=== PATIENT | female | born 1945 | race Caucasian/White ===

== ENCOUNTER 2016-08-22 10:14 | Day surgery (SDC) | payer MEDICARE, OTHER ==
[2016-08-22] VITALS (8 sets, daily range): BP systolic 109–117; BP diastolic 60–89; PULSE 56–74; RESP 13–16; O2SAT 95–100
[~2016-08-22] VITALS: Ht 165.1 cm; Wt 78.0 kg
[~2016-08-22 10:14] MED LIST: ASPI-973 PO; CHOL100045 PO; CeFAZolin Inj 2 GM in IV Premix 1 EACH IV ONE; CeFAZolin Inj 2 GM in IV Premix 1 EACH IV SCH; DILT120T3 PO; LACT1CAP67 PO; Lactated Ringer's 1,000 ML IV SCH; MAGN400T23 PO; METO25TA99 PO; MULT-1018 PO; NAPR220C11 PO; OMEP10CA4 PO; SULF1TAB7 PO
[2016-08-22] MEDS ORDERED: Propofol 10,000 mCg/mL 20 mL Inj ONE (10:15)
[2016-08-22] MEDS ORDERED: Phenylephrine/NS-PF 100 mCg/mL 5 mL Syringe IVPUSH ONE (10:15)
[2016-08-22] MEDS ORDERED: Ondansetron 2 mg/mL 2 mL Inj ONE (10:15)
[2016-08-22] MEDS ORDERED: EPHEDrine/NS 5 mg/mL 5 mL Syringe ONE (10:15)
[2016-08-22] MEDS ORDERED: Lidocaine PF 1% 30 mL Inj ONE (10:15)
[2016-08-22] MEDS ORDERED: fentaNYL-PF 50 mCg/mL 2 mL Inj ONE (10:15)
[2016-08-22] MEDS ORDERED: CeFAZolin 2 Gm/50 mL D5W Duplex Bag IV ONE (11:19)
[2016-08-22] MEDS ORDERED: Lactated Ringer's 500 ML IV PRN (11:47)
[2016-08-22] MEDS ORDERED: Lactated Ringer's 1,000 ML IV SCH (11:47)
--- NOTE | 2016-08-22 11:47 | PCM.HPANE ---
Patient Data Date of Service: Aug 22, 2016 Surgeon Admitting Provider: Attending Provider:Sonya Massey MD Primary Care Physician:Eden Che PA-C Other Provider:Rossi Beatty Anesthesia Reason for Visit Hematuria, Bladder Tumor Ht/WT & BMI Height (Feet): 5 Height (Inches): 5 Weight (Kilograms): 78 Body Mass Index 28.00 Allergies Coded Allergies: No Known Allergies (Unverified , 08/21/16) Past Anesthesia History Anesthesia History: Denies:: Anesthesia Reactions, Malignant Hyperthermia Diabetes History Hx Diabetes?: No MRSA MRSA: No Medications Blood Thinner: Aspirin Hypertension Medication: Yes (DILTIAZEM) Home Meds Incl Beta Jo Ann: Yes Date Beta Jo Ann Taken: Aug 21, 2016 Time Beta Jo Ann Taken: 1999 Reported Medications Sulfamethoxazole/Trimeth 800-160 mg (Bactrim DS)1 Each Tablet1 Tablet PO BID Ref 0 08/21/16 Cholecalciferol (Vitamin D3) (Vitamin D)1,000 Unit Capsule5,000 Unit PO DAILY # 1 BOTTLE Ref 0 08/21/16 Omeprazole 10 Mg Capsule.dr20 Mg PO DAILY Ref 0 08/21/16 Multivitamin (Multi Vitamin Daily)1 Each Tablet1 Each PO DAILY 30 Days Ref 0 08/21/16 Metoprolol Succinate ER 25 Mg Tab.er.24h25 Mg PO DAILY Ref 0 08/21/16 Magnesium Oxide (Mag-Oxide)400 Mg [id number] Mg PO DAILY 08/21/16 Lactobacillus Combination No.4 (Probiotic)1 Each Capsule1 Each PO DAILY 08/21/16 Diltiazem 120 Mg Hulzno275 Mg PO DAILY 08/21/16 Aspirin 81 Mg Nviivq66 Mg PO DAILY Ref 0 08/21/16 Naproxen Sodium (Aleve)220 Mg Cfcxerp435 Mg PO BID PRN PRN 08/21/16 History History of ENT Problems?: No HEENT History: Denies:: Abnormal Airway Difficult Intubation Denture Type: None Teeth Condition: Within Normal Limits Hx of Heart Problems?: Yes Cardiovascular History: Positive for:: Hypertension Irregular Heartbeat Denies:: Heart Murmur Hx of Respiratory Problem?: No Respiratory History: Denies:: Asthma Pulmonary Embolism Use of C-PAP Machine Hx Neurologic Problems?: Yes Hx of GI Problems?: Yes Gastrointestinal History: Positive for:: Gastroesphageal Reflux (with certain foods) Hx of Problems?: Yes Genitourinary History: Positive for:: Urinary Tract Infection (currently on bactrim ds) Other Pertinent History: HEMATURIA/BLADDER TUMOR=CURRENT PROBLEM C/OF NOCTURIA & INCOMPOLETE EMPTYING Female Hx: Denies:: Currently Skin History: Denies:: History Skin Disorders? Pressure Ulcers Hx Musculoskeletal Problems?: No Hx of Psycho/Social Problems?: No Hx Surgeries?: Yes (C/S,BTL,GRADY) Hx Any Other Health Problems?: Yes Other History: Denies:: Cancer Endocrine Disease Hospitalization Thyroid Disease Hx Diabetes: No Hx Alcohol Use: YesHx Substance Use: No Smoking Status: Never Smoker Have You Smoked inLast 12 mo: No Stop/Bang S-Snoring: Do You Snore Loudly: No T-Tired: feel tired, fatigued: Yes O-Obsered: Observed not breath: No P-Blood Pressure: treated: Yes B- Body Mass Index > 35 kg/m2: No A- Age over 50: Yes N- Neck Large Circumference: No G- Gender Male: No COURTNEY Total Score: 3 COURTNEY Risk Assessment: High Risk, =/>3 Yes Risk Assessment Category Category 1A: Patient has history of documented sleep apnea, and HAS NOT received any narcotic, sedative or anesthesia administration during this stay. Category 1B: Patient has history of documented sleep apnea, and HAS received any narcotic , sedative or anesthesia administration during this stay Category 2: Patient has SUSPECTED Obstructive Sleep Apnea, and HAS received any narcotic , sedative or anesthesia administration during this stay. Category 3: Patient has SUSPECTED Obstructive Sleep Apnea and HAS NOT received narcotic, sedative or anesthesia administration during this stay. Category 4: Outpatient in Procedural Areas with known sleep apnea or who screen positive for High Risk via the STOP/BANG questionnaire. Exam Exam Vital Signs Vital Signs Date Time Temp Pulse Resp B/P Pulse Ox O2 Delivery O2 Flow Rate FiO2 08/22/16 11:20 36.4 66 16 117/84 95 Room Air General Appearance: Alert, Oriented X3, Cooperative HEENT/AIRWAY: MP 2, Neck Movement (Full), Mouth Opening (Wide) Lungs: Clear to Auscultation Heart: Regular Rate/Rhythm, Normal S1, Normal S2 Plan Impression Patient chart reviewed, patient interviewed and anesthestic plan with risks, benefits, and alternatives discussed, and informed consent obtained. NPO per Anesth. Guidelines: Yes ASA Physical Status: ASA2 Mod Systemic Disease Anesthetic Plan: GA Bene/Risks/Altern/Consents: Yes HP Complete Prior to Induction: Yes Angelito Alba MD Aug 22, 2016 11:47
[2016-08-22] MEDS ORDERED: fentaNYL-PF 50 mCg/mL 2 mL Inj IVPUSH PRN (11:50)
[2016-08-22] MEDS ORDERED: Phenylephrine 10,000 mCg/mL Inj IVPUSH PRN (11:50)
[2016-08-22] MEDS ORDERED: MetoCLOpramide 5 mg/mL 2 mL Inj IVPUSH PRN (11:50)
[2016-08-22] MEDS ORDERED: HYDROmorphone 1 mg/mL Inj IVPUSH PRN (11:50)
[2016-08-22] MEDS ORDERED: hydrALAZINE 20 mg/mL Inj IVPUSH PRN (11:50)
[2016-08-22] MEDS ORDERED: Labetalol 5 mg/mL 4 mL Inj IV PRN (11:50)
[2016-08-22] MEDS ORDERED: Ondansetron 2 mg/mL 2 mL Inj IVPUSH PRN (11:50)
[2016-08-22] MEDS ORDERED: Atropine 0.4 mg/mL Inj IVPUSH PRN (11:50)
[2016-08-22] MEDS ORDERED: EPHEDrine Sulfate 50 mg/mL Inj IVPUSH PRN (11:50)
[2016-08-22] MEDS ORDERED: Dexamethasone 4 mg/mL Inj IVPUSH PRN (11:50)
[2016-08-22] MEDS ORDERED: Lactated Ringer's 1,000 ML IV ONE (12:02)
[2016-08-22] MEDS ORDERED: HYDROcodone-APAP 5-325 mg Tablet PO PRN (12:50)
--- NOTE | 2016-08-22 13:01 | PCM.ANEP1 ---
Post Anesthesia PACU Phase 1 Assessment Vital Signs Vital Signs Date Time Temp Pulse Resp B/P Pulse Ox O2 Delivery O2 Flow Rate FiO2 08/22/16 13:00 68 15 110/65 97 Room Air 08/22/16 12:55 36.6 72 15 109/60 97 Room Air 08/22/16 12:50 72 13 110/70 97 Room Air 08/22/16 12:45 36.5 74 13 109/68 98 Room Air 08/22/16 11:20 36.4 66 16 117/84 95 Room Air Anesthetic Administered: GA Level of Alertness: Awake, talking HADLEY's with Equal Strength: Yes Pain: No Nausea or Vomiting: No CV Function & Hydration Stable: Yes Airway Device: Oxygen Delivery: Room Air Lungs: Normal Air Movement PACU Phase 2 Assessment Complications: No Follow up Care: No Patient Instructions Provided: N/A Angelito Alba MD Aug 22, 2016 13:01
--- NOTE | 2016-08-22 13:22 | OP ---
[address] [address] OPERATIVE REPORT PATIENT: DIANNA ROGER : 1945 MR#: [id number] ADMIT: 08/22/2016 JOB ID: [id number] DATE OF SURGERY: 08/22/2016 PREOPERATIVE DIAGNOSIS(ES): Bladder tumor. POSTOPERATIVE DIAGNOSIS(ES): Bladder tumor. PROCEDURE PERFORMED: Cystoscopy and transurethral resection of bladder tumor (2 cm). SURGEON: Sonya Massey M.D. FINISHER CARD TENDER: None. 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 ANESTHESIA: General. ESTIMATED BLOOD LOSS: Less than 2 mL. DRAINS: None. SPECIMENS: 1. Bladder tumor. 2. Deep base of bladder tumor. COMPLICATIONS: None. CONDITION: Stable. INDICATION FOR PROCEDURE: The patient is a 70-year-old woman with a bladder tumor. She now presents for transurethral resection of bladder tumor. DESCRIPTION OF PROCEDURE: After informed consent was obtained, the patient was taken to the operating room. A time-out was performed identifying correct patient, surgical site, and procedure. General anesthesia was smoothly induced. She was given intravenous antibiotics just prior to the start of the procedure. She was placed in the lithotomy position and all pressure points were identified and appropriately padded. Her genitals were then prepped and draped in a sterile fashion. A 26-Romansh resectoscope was applied to the patient's urethra and advanced into the bladder under direct vision. The bladder was drained. The bladder was systematically inspected. There was the one bladder tumor as aforementioned. Both ureteral orifices were seen in orthotopic position and normal size and shape. Resection then commenced in a piecemeal fashion removing the tumor. This was passed off the table as bladder tumor. The deep base was sampled with cold cup biopsy forceps. The base and a 1-1.5 cm margin of normal mucosa was cauterized with the loop. The bladder was drained. The bladder was reinspected. There was no bleeding. The instruments were then removed from the patient's body. The patient was then reversed from general anesthesia and taken to the PACU in good and stable condition. [facility]AK[facility] HEALTH SYSTEMPrincess
== END 2016-08-22 23:59 | disposition home or self-care (01) ==
LOC: SAS 10:14
PROVIDERS: ATTEND Urology
DX: D49.4 Neoplasm of unspecified behavior of bladder (principal); R31.9 Hematuria, unspecified
CPT/HCPCS: 52234; J0690; J2370; J2405; J3010; J7120